=== PATIENT | female | born 1970 | race Caucasian/White ===

== ENCOUNTER 2017-02-03 11:58 | Emergency (ER) | payer SELFPAY ==
[~2017-02-03] VITALS: Ht 160 cm; Wt 57.3 kg
[~2017-02-03 11:58] MED LIST: GABA300C10 PO; TRAZ100T15 PO
[2017-02-03 12:00] VITALS: BP 120/74
== END 2017-02-03 13:09 | disposition home or self-care (01) ==
LOC: ED 12:50
DX: M70.22 Olecranon bursitis, left elbow (principal); S50.02XA Contusion of left elbow, initial encounter; Z90.710 Acquired absence of both cervix and uterus; X58.XXXA Exposure to other specified factors, initial encounter; Y93.89 Activity, other specified; Y99.8 Other external cause status; Y92.89 Other specified places as the place of occurrence of the external cause